=== PATIENT | female | born 1990 | race Caucasian/White ===

== ENCOUNTER 2019-02-24 20:03 | Emergency (ER) | payer OTHER ==
[~2019-02-24] VITALS: Ht 157.5 cm; Wt 92.7 kg
[2019-02-24 20:19] VITALS: Ht 157.5 cm; Wt 92.7 kg
[2019-02-24] MEDS ORDERED: COLACE100 MG (20:20)
[2019-02-24] MEDS ORDERED: IBUPROFEN600 MG PO (20:21)
[2019-02-24 20:45] LABS: BASOPHILS 0.4 % (0-2); EOSINOPHILS 1.6 % (0-7); HEMATOCRIT 28.9 % (36.0-48.0); HEMOGLOBIN 9.8 g/dL (12-16); IMMATURE GRANULOCYTES 4.4 % (0-5); LYMPHOCYTES 25.2 % (15-50); MCH 30.1 pg (26.0-34.0); MCHC 33.9 g/dL (31.0-37.0); MCV 88.7 fL (80.0-100.0); MEAN PLATELET VOLUME 8.8 fL (7.4-10.4); MONOCYTES 8.2 % (2-11); NEUTROPHILS 60.2 % (40-80); PLATELET COUNT 338 10x3/uL (130-400); RBC 3.26 10x6/uL (4.00-5.40); RDW 13.8 % (11.5-14.5); WBC 10.7 10x3/uL (4.8-10.8)
[2019-02-24 21:01] LABS: APPEARANCE HAZY (CLEAR); BILIRUBIN NEGATIVE (NEGATIVE); COLOR STRAW (YELLOW); GLUCOSE NEGATIVE (NEGATIVE); KETONE NEGATIVE (NEGATIVE); NITRITE NEGATIVE (NEGATIVE); PROTEIN TRACE mg/dL (NEGATIVE); UROBILINOGEN NORMAL (NORMAL)
[2019-02-24 21:02] LABS: EPITHELIAL CELLS 0-5 /hpf (0-5)
[2019-02-24 21:03] LABS: ALBUMIN 2.7 g/dL (3.4-5.0); ALKALINE PHOSPHATASE 80 U/L (46-116); ALT (SGPT) 30 U/L (10-68); BILIRUBIN - TOTAL 0.12 mg/dL (0.2-1.3); CALC OSMOLALITY 286 mosm/kg (275-300); CARBON DIOXIDE 26.4 mmol/L (21.0-32.0); CHLORIDE - SERUM 107 mmol/L (98-107); CREATININE - SERUM 0.7 mg/dL (0.6-1.3); GLUCOSE 84 mg/dL (74-106); MAGNESIUM - SERUM 1.7 mg/dL (1.8-2.4); POTASSIUM - SERUM 3.6 mmol/L (3.5-5.1); PROTEIN - SERUM 6.2 g/dL (6.4-8.2); SODIUM 143 mmol/L (136-145); UREA NITROGEN 22 mg/dL (7-18); eGFR NON AFRICAN AMERICAN > 90 mL/min (90-120)
[2019-02-24] MEDS ORDERED: ALDOMET250 MG PO (22:45)
[2019-02-25 00:10] VITALS: BP 123/69
== END 2019-02-25 00:10 | disposition home or self-care (01) ==
LOC: D.ER 20:03
PROVIDERS: Emergency Medicine
DX: O90.89 Other complications of the puerperium, not elsewhere classified (principal); R51 Headache; I10 Essential (primary) hypertension

== ENCOUNTER 2019-03-27 18:15 | Emergency (ER) | payer OTHER ==
[~2019-03-27] VITALS: Ht 157.5 cm; Wt 81.8 kg
[~2019-03-27 18:15] MED LIST: ALDOMET250 MG PO; COLACE100 MG; IBUPROFEN600 MG PO
[2019-03-27 18:28] VITALS: Ht 157.5 cm; Wt 81.8 kg
[2019-03-27 18:53] LABS: BASOPHILS 0.6 % (0-2); EOSINOPHILS 1.5 % (0-7); HEMATOCRIT 36.7 % (36.0-48.0); HEMOGLOBIN 12.9 g/dL (12-16); IMMATURE GRANULOCYTES 0.4 % (0-5); MCHC 35.1 g/dL (31.0-37.0); MCV 85.3 fL (80.0-100.0); MONOCYTES 10.1 % (2-11); NEUTROPHILS 51.4 % (40-80); PLATELET COUNT 308 10x3/uL (130-400); RDW 12.3 % (11.5-14.5); WBC 5.4 10x3/uL (4.8-10.8)
[2019-03-27 19:10] LABS: APTT 27.7 SECONDS (22.8-39.4); INR 1.13 (0.85-1.17)
[2019-03-27 19:18] LABS: ALKALINE PHOSPHATASE 55 U/L (46-116); ALT (SGPT) 29 U/L (10-68); BILIRUBIN - TOTAL 0.42 mg/dL (0.2-1.3); CALC OSMOLALITY 277 mosm/kg (275-300); CARBON DIOXIDE 26.4 mmol/L (21.0-32.0); CHLORIDE - SERUM 104 mmol/L (98-107); CREATININE - SERUM 0.9 mg/dL (0.6-1.3); GLUCOSE 87 mg/dL (74-106); POTASSIUM - SERUM 4.5 mmol/L (3.5-5.1); PROTEIN - SERUM 7.2 g/dL (6.4-8.2); SODIUM 140 mmol/L (136-145); UREA NITROGEN 13 mg/dL (7-18); eGFR NON AFRICAN AMERICAN 80 mL/min (90-120)
[2019-03-27 19:27] LABS: CKMB 0.3 U/L (0.0-3.6); CREATINE KINASE 92 UL (21-215); MAGNESIUM - SERUM 1.8 mg/dL (1.8-2.4)
[2019-03-27 19:31] LABS: TROPONIN-I < 0.017 ng/mL (0.000-0.060)
[2019-03-27 21:48] VITALS: BP 126/85
== END 2019-03-27 21:48 | disposition home or self-care (01) ==
LOC: D.ER 18:15
PROVIDERS: Family Medicine
DX: R00.2 Palpitations (principal)

== ENCOUNTER → 2019-12-20 12:27 | Outpatient (CLI) | payer OTHER ==
[2019-03-27 18:28] VITALS: BMI 33.0
== END | disposition home or self-care (01) ==
LOC: D.US 12:27
PROVIDERS: ATTEND Nurse Practitioner Women's Health
DX: N63.23 Unspecified lump in the left breast, lower outer quadrant (principal)

== ENCOUNTER → 2020-01-11 10:21 | Outpatient (CLI) | payer OTHER ==
[2019-03-27 18:28] VITALS: BMI 33.0
== END | disposition home or self-care (01) ==
LOC: D.US 10:21
PROVIDERS: ATTEND Surgery
DX: N60.02 Solitary cyst of left breast (principal)

== ENCOUNTER → 2020-01-24 11:30 | Outpatient (CLI) | payer OTHER ==
[2019-03-27 18:28] VITALS: BMI 33.0
== END | disposition home or self-care (01) ==
LOC: D.LABREF 11:30
PROVIDERS: ATTEND Surgery
DX: N60.82 Other benign mammary dysplasias of left breast (principal)